=== PATIENT | male | born 1955 | race Caucasian/White ===

== ENCOUNTER → 2017-10-30 | Outpatient (CLI) | payer OTHER ==
[2017-10-30 12:26] LABS: HCT 43.9 % (39.0-53.0); HGB 14.5 gm/dL (13.0-17.5); MCH 31.7 pg (25.0-35.0); MCV 96.3 fL (80.0-100.0); Mean Platelet Volume 7.3; Platelet Count 225 k/uL (150-450); RBC 4.56 m/uL (4.30-5.90); RDW 12.5 % (11.5-15.5); WBC 5.4 k/uL (3.8-10.6)
[2017-10-30 12:34] LABS: INR 1.1 (<1.2); Partial Thromboplastin Time 24.4 sec (22.0-30.0); Prothrombin Time 10.5 sec (9.0-12.0)
[2017-10-30 12:38] LABS: ALT 48 U/L (21-72); AST 22 U/L (17-59); Albumin 4.2 g/dL (3.5-5.0); Alkaline Phosphatase 64 U/L (38-126); Anion Gap 11 mmol/L; Blood Urea Nitrogen 20 mg/dL (9-20); Calcium 9.7 mg/dL (8.4-10.2); Carbon Dioxide 23 mmol/L (22-30); Chloride 108 mmol/L (98-107); Glucose 88 mg/dL (74-99); Sodium 142 mmol/L (137-145); Total Bilirubin 0.3 mg/dL (0.2-1.3); Total Protein 6.7 g/dL (6.3-8.2)
[2017-10-30 12:43] LABS: Potassium 4.4 mmol/L (3.5-5.1)
[2017-10-30 12:54] LABS: Appearance,Urine Clear (Clear); Bilirubin,Urine Negative (Negative); Blood,Urine Negative (Negative); Color,Urine Yellow; Glucose,Urine (UA) Negative (Negative); Ketones,Urine Negative (Negative); Leukocyte Esterase,Urine Negative (Negative); Nitrite,Urine Negative (Negative); Protein,Urine Negative (Negative); Specific Gravity,Urine 1.013 (1.001-1.035); Urobilinogen,Urine <2.0 mg/dL (<2.0)
== END | disposition home or self-care (01) ==
LOC: LABPAT 12:11
PROVIDERS: ATTEND Orthopaedic Surgery Sports Medicine
DX: Z01.818 Encounter for other preprocedural examination (principal); Z01.812 Encounter for preprocedural laboratory examination
CPT/HCPCS: 36415; 80053; 81003; 85027; 85610; 85730; 87070; 93005

== ENCOUNTER 2017-11-18 10:20 | Inpatient (IN) | payer OTHER ==
[2017-11-11 11:44] VITALS: BMI 27.3
[~2017-11-18 10:20] MED LIST: ACETAMINOPHEN TAB 500 MG TAB PO ONE; DEXAMETHASONE SOD PHOSPHATE 10 MG/ML 1 ML VIAL IV ONE; HYDROmorphone 0.5 MG/0.5 ML SYRINGE IVP PRN; LIDOCAINE 1% 20 ML VIAL (10MG/ML) FOR IV START INTRADERMA PRN; MELOXICAM 7.5 MG TAB PO ONE; MIDAZOLAM 2 MG/2 ML VIAL IV PRN; ONDANSETRON 4 MG/2 ML VIAL IVP ONE; ROPIVACAINE 246.25 MG, EPINEPHrine 0.5 MG, KETOROLAC 30 MG, cloNIDine HCL/PF 80 MCG, WA... MISCELLANE ONE; SCOPOLAMINE 1.5MG/72HR PATCH TRANSDERM ONE; TRANEXAMIC ACID 1,000 MG in SODIUM CHLORIDE 0.9% 50 ML IVPB ONE; ceFAZolin IN SWFI 2 GM/20 ML SYRINGE IVP ONE
[2017-11-18] MEDS: LACTATED RINGERS 1,000 ML IV SCH ×2 (11:39→15:57)
[2017-11-18] MEDS ORDERED: diphenhydrAMINE 50 MG/ML 1 ML VIAL ONE (11:41)
[2017-11-18] MEDS ORDERED: ePHEDrine 50 MG/ML 1 ML AMP ONE (11:41)
[2017-11-18] MEDS ORDERED: LIDOCAINE 1% INJ 10MG/ML (20 ML MDV) ONE (11:41)
[2017-11-18] MEDS ORDERED: MORPHINE SULFATE (PF) 0.3 MG/0.3 ML SYR ONE (11:41)
[2017-11-18] MEDS ORDERED: SODIUM CHLORIDE 0.9% 100 ML BAG ONE (11:41)
[2017-11-18] MEDS ORDERED: PROPOFOL 10 MG/ML 20 ML VIAL IV ONE (11:41)
[2017-11-18] MEDS ORDERED: TRANEXAMIC ACID 1,000 MG/10 ML VIAL ONE (11:41)
[2017-11-18] MEDS ORDERED: fentaNYL (PF) 50 MCG/ML 2 ML AMP ONE (11:41)
[2017-11-18] MEDS ORDERED: MIDAZOLAM 2 MG/2 ML VIAL ONE (11:41)
[2017-11-18] MEDS ORDERED: SUCCINYLCHOLINE CHLORIDE 100 MG/5 ML SYR IV ONE (11:41)
[2017-11-18] MEDS ORDERED: ceFAZolin 1,000 MG in SODIUM CHLORIDE 0.9% 1,000 ML IRRIGATION ONE ×2 (13:04→13:05)
[2017-11-18] MEDS ORDERED: traMADol 50 MG TAB PO PRN (13:56)
[2017-11-18] MEDS ORDERED: ONDANSETRON 4 MG/2 ML VIAL IVP PRN (13:56)
[2017-11-18] MEDS ORDERED: MAGNESIUM HYDROXIDE 2,400 MG/10 ML CUP PO PRN (13:56)
[2017-11-18] MEDS ORDERED: hydrOXYzine PAMOATE 25 MG CAP PO PRN (13:56)
[2017-11-18] MEDS ORDERED: NA PHOS,M-B/NA PHOS,DI-BA 133 ML ENEMA RECTAL PRN (13:56)
[2017-11-18] MEDS ORDERED: DIAZEPAM 5 MG TAB PO PRN (13:56)
[2017-11-18] MEDS ORDERED: NALOXONE 0.4 MG/ML 1 ML VIAL IV PRN (13:56)
[2017-11-18] MEDS ORDERED: HYDROmorphone 0.5 MG/0.5 ML SYRINGE IVP PRN ×2 (13:56)
[2017-11-18] MEDS ORDERED: HYDROmorphone 2 MG/ML 1 ML SYRINGE IVP PRN (13:56)
[2017-11-18] MEDS ORDERED: ACETAMINOPHEN TAB 325 MG TAB PO PRN (13:56)
[2017-11-18] MEDS ORDERED: TEMAZEPAM 15 MG CAP PO PRN (13:56)
[2017-11-18] MEDS ORDERED: BISACODYL 10 MG SUPP RECTAL PRN (13:56)
[2017-11-18] MEDS ORDERED: HYDROcodone/APAP 7.5-325MG 1 EACH TAB PO PRN (13:56)
--- NOTE | 2017-11-18 14:26 | XR ---
Left knee HISTORY: Postop left knee 2 views of the left knee Patient is status post left knee arthroplasty. There is anatomic alignment. Lucency present in the so ft tissues is compatible with postop state. Bone mineralization is reduced. IMPRESSION: Orthopedic follow-up.
--- NOTE | 2017-11-18 14:45 | OP ---
OPERATIVE REPORT DATE OF PROCEDURE: 11/18/2017 PREOPERATIVE DIAGNOSIS: Left knee osteoarthrosis. POSTOPERATIVE DIAGNOSIS: Left knee osteoarthrosis. OPERATION: Left total knee arthroplasty. SURGEON: Rio Jones MD. HEALTH INSURANCE SALES AGENT: TRAN Sorensen. ANESTHESIA: Spinal with sedation. ESTIMATED BLOOD LOSS: 100 mL. TOURNIQUET TIME: 56 minutes at 250 mmHg. COMPLICATIONS: None apparent. DRAINS: None. DISPOSITION: Postanesthesia care unit. INDICATIONS: Yves is a very pleasant 62-year-old male with longstanding history of left knee pain. History and physical examination are consist with advanced left knee osteoarthrosis. He has been through a significant nonoperative management up to this point. Further treatment options were discussed and he has decided to go for the left total knee arthroplasty. The risks of procedure were discussed with him in detail. These risks include, but are not limited to risk of infection, nerve damage, bleeding, pain and risk of deep vein thrombosis which could lead to fatal pulmonary embolism. There is also risk of loosening of the implant which could require revision operation. The patient understands these risks. All of his questions were answered to his satisfaction. An appropriate informed consent was obtained. DESCRIPTION OF THE PROCEDURE: Patient identified in the preoperative holding area. Surgical sites marked by both the patient and myself. He was given 2 g of Ancef IV for prophylactic purposes. He was then transferred to the operative suite, he was placed supine on the operative table. Spinal anesthetic was then administered and dosed per the Anesthesia Department without apparent complication. Examination under anesthesia was then performed. The patient was 2 to 3 degrees shy of full extension. He had 105 degrees of flexion. The medial collateral ligament, lateral collateral ligament, posterior cruciate ligaments were stable. Tourniquet was then placed high on the left upper thigh, well-padded in preparation for surgery. The patient's left lower extremity was then prepped and draped in usual sterile fashion. Standard surgical pause was then undertaken to ensure that we were operating on the correct site and that appropriate preoperative antibiotics have been given. All staff in the room were in agreement and we proceeded. The outlines of the patella were marked with a surgical pen. A planned 12 cm vertical incision centered over the patella was marked with the surgical pen. Leg was then exsanguinated with an Esmarch dressing. The knee was then flexed and the tourniquet inflated to 250 mmHg. The total tourniquet time for the procedure was 56 minutes. Incision was then made with a 10 blade scalpel. Dissection was carried down sharply through the overlying fascia. Great care was taken to minimize the skin flaps. The knee was then exposed using a standard medial parapatellar approach. A small cuff of quadriceps tendon was left for suturing. He was in a bit of varus preoperatively. A standard medial release was then made. The superficial medial collateral ligament was dissected off of the bone around to the posterior aspect of the proximal tibia. The medial meniscus was then excised as well. The lateral meniscus was also released anteriorly. The leg was then externally rotated. The patella was everted and the knee was flexed. The retractors were then placed to protect the collateral ligaments. I then proceeded to remove the infrapatellar fat pad. This was excised sharply, tangentially with fibers of the patellar tendon. I then proceeded to remove peripheral osteophytes. This was done with a rongeur. I then proceeded with the distal femoral resection. He did have near full extension. A planned 9 mm resection was then done. The femoral canal was then entered in the midline and the femur approximately 10 mm anterior to the origin of the posterior cruciate ligament. The deana was then advanced down the center of the femur and placed intramedullary. Based on the preoperative radiographs, the angle between the anatomic and mechanical axis of the femur was approximately 4 to 5 degrees. The valgus angle of the distal femoral cutting guide was then set at 4 degrees for the left knee. The distal femoral cutting guide was then advanced over the intramedullary deana. This was seated firmly against the femur. I then as mentioned planned to take 9 mm off the distal femur. The cutting block was then secured to the femur with pins. The jig was removed and the distal femoral cut was made through the slot of the block. The pins were removed and the distal femoral cutting block was removed. The accuracy of the distal femoral cuts was checked with 2 flat bars. I then proceeded to femoral sizing. Posterior referencing sizing guide was held firmly against the resected distal surface of the femur. The posterior condyles were resting on the posterior plane of the guide. The sizing stylus was then placed onto the anterior femur. The size was measured as a size 9. I then assessed for femoral rotation. The plan was for 3 degrees of external rotation. Three degrees of external rotation was placed onto the jig. These holes were then marked. I then confirmed the rotation by 3 separate methods. This was done using epicondylar axis as well as Whitesides line and posterior referencing. It was deemed that the external rotation was proper. I then went forward placing the femoral cutting block. This placed over the previously placed pin holes. The Kenrick wing was then placed on the anterior slots to ensure that we would not notch the anterior femur with the anterior femoral cut. I then proceeded with the anterior femoral cut. This was flush with the anterior cortex of the femur. The posterior cuts were then made followed by the anterior chamfer cut and then the posterior chamfer cut. The cutting block was then removed. Throughout the resection, the collateral ligaments were protected with retractors. I then placed a trial size 9 femur. It fit very nice medial-lateral and fit flush with the distal end of the femur. The drill holes were then made. I then proceeded with the tibial cut. I planned for a cruciate retaining knee. The guide was then placed and set for varus valgus and for slope. The height was set for approximate 2 mm resection from the medial tibial plateau which was the lower side. I was happy with the alignment and the amount of resection. The cutting block was then pinned to the proximal tibia. The alignment deana was then removed and the proximal tibia was resected with a reciprocating saw. Again this was done with retractors protecting the collateral ligaments as well as the posterior cruciate ligament. I then proceeded to evaluate the flexion and extension gaps. A 10 mm block was placed. The flexion-extension gaps were equal. I then proceeded with resection of the posterior osteophytes. There are very minimal posterior osteophytes. This was done using a curved osteotome. This resected the posterior osteophytes and posterior capsule stripping was also done off the posterior aspect of the femur at this time. The osteophytes were removed. I then proceeded to resection of the patella. The thickness of patella was measured using the caliper. The thickness was 25 mm. The thickness of the anticipated patellar dome was then taken into account. Resection was then performed and confirmed to be equal in 4 quadrants using a caliper. Approximately 14 mm of bone remained after the resection. A 35 x 9 mm standard patellar trial was then placed. The drill holes were then drilled. The trial was then placed. I then proceeded with sizing the tibial plate. A size F tibial plate fit very nicely. I then placed the trial femur, the tibial tray and the patellar button. A 10 mm insert was placed. The components fit very nicely. He had full flexion and extension. The extension and flexion gaps were equal and stable to both varus and valgus stress. The patella tracked appropriately. The tibial tray rotation was marked with a Bovie. This was externally rotated properly. I then proceeded with tibial preparation. I first drilled the femoral holes, removed femoral component. The tibial tray was then set for proper external rotation as well as mediolateral placement onto the tibia. It was then pinned into place. I then proceeded with punching the keel. I then decided to proceed with cementing of all of our components. The knee was thoroughly irrigated with sterile saline solution via pulse lavage. The lateral geniculate artery was identified and cauterized. All blood was removed from the bone of the tibia femur and patella with pulse lavage. I then proceeded with cementing. Two packs of antibiotic bone cement were prepared on the back table by the surgical assistant certified. I then proceed with cementing the tibia first. The cement was impacted into the keel as well as deeply seated in the bone. A second coat of cement was then placed. The tibia was then impacted into place. Excess cement was removed with Erie's and jokers. I then proceeded with cementing the femoral component. The femoral component was also cemented using standard technique. Excess cement was removed. A 10 mm trial insert was placed into the knee. It was brought into full extension with a constant axial load placed until the cement had hardened. The patellar component was then cemented. This was held firmly with a compressive device until the cement had dried. When the cement dried, the knee was taken out of extension. All excess cement was removed from around the prosthesis. I then trialed with a 10 mm insert. I continued the trial up to a 14 mm insert. The flexion-extension gaps felt much better. The knee was stable with the 14 mm insert. It came in full extension. I decided to go for the 14 mm cross-linked cruciate-retaining tibial insert. The polyethylene was then placed onto the tibial tray and locked into place. The knee was reduced. The knee was again further irrigated with sterile saline solution with antibiotic added. The tourniquet was then deflated. The total tourniquet time for the procedure was 56 minutes at 250 mmHg. Final components were [place] Persona size 9, cruciate-retaining femoral component a size F tibial tray, a 14 mm cruciate-retaining polyethylene insert and a 35 x 9 mm patella. I then proceeded with closure. Again, the knee was thoroughly irrigated. The quadriceps tendon and the medial retinaculum were reapproximated with #2 Ethibond suture. The extensor mechanism was then closed with a running #2 Quill suture. Subcutaneous tissues were then closed with 2-0 Vicryl interrupted suture. The skin was closed with a running 3-0 Quill suture. Dermabond was applied to the incision. Sterile compressive dressings were then applied. All sponge and needle counts were deemed correct prior to closure. The patient tolerated the procedure without apparent complication. He was transferred to the recovery room in stable condition. MMODL / IJN: [id number] /
[2017-11-18] MEDS ORDERED: GABAPENTIN 300 MG CAP PO PRN (17:11)
[2017-11-18] MEDS ORDERED: BACLOFEN 10 MG TAB PO PRN (17:11)
[2017-11-18] MEDS: ASPIRIN 325 MG TAB PO SCH (20:11)
[2017-11-18] MEDS: ceFAZolin IN SWFI 2 GM/20 ML SYRINGE IVP SCH (20:11)
[2017-11-18] MEDS ORDERED: SENNOSIDES-DOCUSATE SODIUM 1 EACH TAB PO SCH (21:00)
[2017-11-18] MEDS ORDERED: ATORVASTATIN 10 MG TAB PO SCH (21:00)
[2017-11-18 21:34] VITALS: RESP 16
[2017-11-19] MEDS: LACTATED RINGERS 1,000 ML IV SCH ×3 (00:11→10:29)
[2017-11-19] MEDS: HYDROcodone/APAP 7.5-325MG 1 EACH TAB PO PRN ×3 (03:27→13:39)
[2017-11-19] MEDS: diphenhydrAMINE 25 MG CAP PO PRN ×2 (03:28→10:29)
[2017-11-19] MEDS: ceFAZolin IN SWFI 2 GM/20 ML SYRINGE IVP SCH (03:31)
[2017-11-19 07:17] LABS: Basophils % (A) 0 %; Eosinophils % (A) 0 %; HCT 38.7 % (39.0-53.0); HGB 12.3 gm/dL (13.0-17.5); Lymphocytes # (A) 1.5 k/uL (1.0-4.8); Lymphocytes % (A) 13 %; MCH 31.6 pg (25.0-35.0); MCHC 31.8 g/dL (31.0-37.0); MCV 99.6 fL (80.0-100.0); Mean Platelet Volume 8.1; Monocytes # (A) 0.9 k/uL (0-1.0); Monocytes % (A) 8 %; Neutrophils # (A) 9.1 k/uL (1.3-7.7); Neutrophils % (A) 78 %; Platelet Count 174 k/uL (150-450); RBC 3.89 m/uL (4.30-5.90); RDW 13.9 % (11.5-15.5); WBC 11.7 k/uL (3.8-10.6)
--- NOTE | 2017-11-19 07:34 | P.PN ---
Progress Note - Text Anesthesia POD 1. Patient is status post left TKR under spinal anesthesia which was converted to general endotracheal anesthesia because of inadequate block. Intrathecal morphine 300 g was included with the spinal. Patient states that he has had excellent postoperative analgesia through this morning. The patient did experience mild pruritus. There is no headache or other complications associated with spinal anesthetic.
[2017-11-19] MEDS: ASPIRIN 325 MG TAB PO SCH (08:15)
[2017-11-19 08:23] VITALS: BP 117/68; PULSE 50; TEMP 98.3
[2017-11-19] MEDS ORDERED: B COMPLEX-VIT C-VIT E-ZINC 1 EACH TAB PO SCH (09:00)
[2017-11-19] MEDS ORDERED: NON-FORMULARY DRUG (Multivitamin/Iron/Folic Acid [Centrum Complete Multivit Tab] 1 TAB) PO SCH (09:00)
[2017-11-19] MEDS ORDERED: UBIDECARENONE 200 MG PO SCH (09:00)
[2017-11-19] MEDS ORDERED: NON-FORMULARY DRUG (Glucosamine/Chondr Su A Sod [Osteo Bi-Flex Caplet] 1 TAB) PO SCH (09:00)
[2017-11-19] MEDS ORDERED: MULTIVITAMINS, THERA 1 EACH TAB PO SCH (12:00)
--- NOTE | 2017-11-19 12:49 | P.DS ---
Providers Date of admission: 11/18/17 10:20 Expected date of discharge: 11/19/17 Attending physician: Rio Jones Consults: 11/18/17 13:56 Consult Physician Routine Consulting Provider: Niles Glover Reason/Comments: post op medical management Do you want consulting provider notified?: Yes Primary care physician: Niles Glover - Discharge Diagnosis(es) (1) Osteoarthritis of left knee Patient was admitted to the OR on 11/18/16 to undergo left total knee arthroplasty. He had failed conservative measures as an outpatient and desired to proceed with elective surgery after given informed consent. He underwent the above procedure which he tolerated well without complication. Postoperative hospital course has remained without complication. On day of discharge he is afebrile, vital signs stable, labs within acceptable ranges, tolerating by mouth meds and diet, voiding without difficulty, positive flatus, denies abdominal pain or calf pain, pain is controlled on oral pain medication and has no new complaints. Wound is benign, neurovascular status is intact, calf is soft and nontender, abdomen soft and nontender. Review of systems is negative for numbness, tingling, fever, chills, chest pain, shortness breath, nausea, vomiting, dizziness, headaches, slurred speech or other. Current Visit: Yes Status: Acute Priority: Medium Procedures: Left TKA Patient Condition at Discharge: Good Plan - Discharge Summary Discharge Rx Participant: Yes New Discharge Prescriptions: New Aspirin 325 mg PO BID #60 tab Docusate [Colace] 100 mg PO BID #60 capsule HYDROcodone/APAP 7.5-325MG [[place] 7.5-325] 1 - 2 each PO Q6HR PRN #90 tab PRN Reason: Pain No Action Simvastatin [Zocor] 10 mg PO HS Multivitamin/Iron/Folic Acid [Centrum Complete Multivit Tab] 1 tab PO DAILY Gabapentin [Neurontin] 300 mg PO Q8HR PRN PRN Reason: Pain Meloxicam 15 mg PO DAILY PRN PRN Reason: Pain Ubidecarenone [Co Q10] 200 mg PO DAILY Vitamin B Complex 1 cap PO DAILY Glucosamine/Chondr Villavicencio A Sod [Osteo Bi-Flex Caplet] 1 tab PO DAILY Prostate Tablet 1 tab PO DAILY traMADol HCL [Ultram] 50 mg PO Q6HR PRN PRN Reason: Pain Baclofen [Lioresal] 10 mg PO TID PRN PRN Reason: Pain Aspirin [Adult Aspirin Regimen] 81 mg PO DAILY Hydrocodone/Acetaminophen [[place] 5-325] 1 tab PO Q4HR PRN PRN Reason: Pain Discharge Medication List Simvastatin [Zocor] 10 mg PO HS 03/01/14 [History] Multivitamin/Iron/Folic Acid [Centrum Complete Multivit Tab] 1 tab PO DAILY [History] Aspirin [Adult Aspirin Regimen] 81 mg PO DAILY 11/11/17 [History] Baclofen [Lioresal] 10 mg PO TID PRN 11/11/17 [History] Gabapentin [Neurontin] 300 mg PO Q8HR PRN 11/11/17 [History] Glucosamine/Chondr Villavicencio A Sod [Osteo Bi-Flex Caplet] 1 tab PO DAILY 11/11/17 [ History] Meloxicam 15 mg PO DAILY PRN 11/11/17 [History] Prostate Tablet 1 tab PO DAILY 11/11/17 [History] Ubidecarenone [Co Q10] 200 mg PO DAILY 11/11/17 [History] Vitamin B Complex 1 cap PO DAILY 11/11/17 [History] traMADol HCL [Ultram] 50 mg PO Q6HR PRN 11/11/17 [History] Hydrocodone/Acetaminophen [[place] 5-325] 1 tab PO Q4HR PRN 11/18/17 [History] Aspirin 325 mg PO BID #60 tab 11/19/17 [Rx] Docusate [Colace] 100 mg PO BID #60 capsule 11/19/17 [Rx] HYDROcodone/APAP 7.5-325MG [[place] 7.5-325] 1 - 2 each PO Q6HR PRN #90 tab [Rx] Follow up Appointment(s)/Referral(s): [facility], [NON-STAFF] - Rio Jones MD [STAFF PHYSICIAN] - 10 Days Activity/Diet/Wound Care/Special Instructions: Keep wound clean and dry Take meds as directed Follow-up with Dr. Jones in office weight bear as tolerated. may shower in 72 hours Discharge Disposition: HOME WITH HOME HEALTH SERVICES
--- NOTE | 2017-11-19 14:18 | P.CONS ---
History of Present Illness - Reason for Consult Consult date: 11/19/17 Medical management Requesting physician: Rio Jones - Chief Complaint Left total knee arthroplasty - History of Present Illness This is a pleasant 62-year-old gentleman patient of Dr. Ladd. He has underlying history of kidney stones, and hyperlipidemia admitted to service of Dr. Jones for a left total knee arthroplasty. He was cleared by our officeposition for the proposed procedures. Patient did well postoperatively without any nausea vomiting or chest pain. Patient does not have any complications perioperatively, and is anticipating for an early discharge later this afternoon. Patient's medically stable without any new complaints postoperative pain is controlled. Patient's continue be discharged on aspirin 325 mg twice a day for DVT prophylaxis. Patient denies any prior history of DVT in the past. PE in the past, no family history of hypercoagulopathy Review of Systems Constitutional: Reports as per HPI, Denies anorexia, Denies chills, Denies chronic headaches, Denies chronic pain, Denies daytime sleepiness, Denies fatigue, Denies fever, Denies lethargy, Denies malaise, Denies night sweats, Denies poor appetite, Denies sweats, Denies weakness, Denies weight gain, Denies weight loss Ears, nose, mouth and throat: Reports as per HPI, Denies ant. neck pain, Denies bleeding gums, Denies dental pain, Denies dysphagia, Denies epistaxis, Denies headache, Denies hoarseness, Denies mouth pain, Denies nasal congestion, Denies nasal discharge, Denies neck fullness/pressure, Denies neck lump, Denies nose pain, Denies odynophagia, Denies post-nasal drip, Denies sinus pain, Denies sinus pressure, Denies swelling in mouth, Denies swelling in throat, Denies sore throat, Denies vertigo, Denies voice changes Cardiovascular: Reports as per HPI, Denies chest pain, Denies claudication, Denies decreased exercise tolerance, Denies dyspnea on exertion, Denies edema, Denies high blood pressure, Denies irregular heart beat, Denies leg edema, Denies lightheadedness, Denies orthopnea, Denies palpitations, Denies paroxysmal nocturnal dyspnea, Denies phlebitis, Denies rapid heart beat, Denies shortness of breath, Denies syncope Respiratory: Reports as per HPI, Denies congestion, Denies cough, Denies cough with sputum, Denies dyspnea, Denies excessive sputum, Denies hemoptysis, Denies home oxygen, Denies pain, Denies pain on inspiration, Denies pleurisy, Denies respiratory infections, Denies sleep apnea, Denies snoring, Denies wheezing Gastrointestinal: Reports as per HPI, Denies abdominal pain, Denies belching, Denies bloating, Denies BRBPR, Denies change in bowel habits, Denies coffee ground emesis, Denies constipation, Denies diarrhea, Denies dyspepsia, Denies early satiety, Denies excessive gas, Denies heartburn, Denies hematemesis, Denies hematochezia, Denies indigestion, Denies jaundice, Denies lactose intolerance, Denies loss of appetite, Denies melena, Denies nausea, Denies vomiting Genitourinary: Reports as per HPI, Denies decreased libido, Denies difficulties fathering child, Denies discharge, Denies dysuria, Denies erectile dysfunction, Denies flank pain, Denies genital pain, Denies genital sores, Denies hematuria, Denies impotence, Denies incontinence, Denies kidney stones, Denies nocturia, Denies polyuria, Denies testicular lump, Denies testicular pain, Denies urinary frequency, Denies urinary hesitancy, Denies urinary retention Musculoskeletal: Reports as per HPI, Denies arm numbness/tingling, Denies atrophy, Denies fractures, Denies frequent falls, Denies gait dysfunction, Denies hot joints, Denies leg numbness/tingling, Denies limitation of motion, Denies loss of height, Denies low back pain, Denies morning stiffness, Denies muscle cramps, Denies muscle weakness, Denies myalgias, Denies neck pain, Denies neck stiffness, Denies prior amputations, Denies redness of joints, Denies shooting arm pain, Denies shooting leg pain Musculoskeletal: left: knee pain, knee stiffness Integumentary: Reports as per HPI, Denies acne, Denies boils, Denies brittle nails, Denies change in hair/nails, Denies color changes, Denies darkening of skin, Denies depigmentation, Denies dryness, Denies foot/leg ulcers, Denies growths, Denies hirsutism, Denies lesions, Denies onychomycosis, Denies pruritus , Denies rash, Denies sores, Denies striae, Denies unusual bruising Neurological: Reports as per HPI, Denies aphasia, Denies ataxia, Denies balance difficulties, Denies burning pain, Denies change in mentation, Denies change in smell/taste, Denies change in speech, Denies confusion, Denies convulsions, Denies double vision, Denies gait dysfunction, Denies head injury, Denies headaches, Denies hearing difficulties, Denies lack of coordination, Denies loss of vision, Denies memory loss, Denies migraines, Denies motor disturbance, Denies numbness, Denies paralysis, Denies paresthesias, Denies seizures, Denies sensory deficit, Denies spasticity, Denies syncope, Denies tic, Denies tingling , Denies transient paralysis, Denies tremors, Denies vertigo, Denies weakness, Denies visual changes Psychiatric: Reports as per HPI Endocrine: Reports as per HPI, Denies cold intolerance, Denies deepening of the voice, Denies excessive sweating, Denies excessive thirst, Denies fatigue, Denies flushing, Denies heat intolerance, Denies high blood sugars, Denies increase in ring/shoe/hat size, Denies low blood sugars, Denies nocturia, Denies palpitations, Denies polydipsia, Denies polyphagia, Denies polyuria, Denies proptosis, Denies recent glucocorticoid use, Denies thyroid mass, Denies weight change Hematologic/Lymphatic: Reports as per HPI Allergic/Immunologic: Reports as per HPI, Denies allergic rhinitis, Denies anaphylaxis, Denies angioedema, Denies gluten intolerance, Denies persistent infections, Denies seasonal allergies, Denies urticaria, Denies wheezing Past Medical History Past Medical History: Hyperlipidemia Additional Past Medical History / Comment(s): kidney stones, History of Any Multi-Drug Resistant Organisms: None Reported Past Surgical History: Orthopedic Surgery Additional Past Surgical History / Comment(s): bilateral knee arthroscopic, deviated septum, varicose vein surgery left leg, Past Anesthesia/Blood Transfusion Reactions: No Reported Reaction Past Psychological History: No Psychological Hx Reported Smoking Status: Former smoker Past Alcohol Use History: Occasional Additional Past Alcohol Use History / Comment(s): quit smoking 45 yrs, smoked for 5 yrs Past Drug Use History: None Reported - Past Family History Father Family Medical History: Cancer (Prostate cancer stomach cancer secondary to CVA at age 87) Mother Family Medical History: Cancer (Brain tumor at age 62) Brother(s) Family Medical History: Unable to Obtain Sister(s) Family Medical History: Cancer (Cancer lung, one sister 51, 4 other sisters one with cancer lung cancer alive, others have URETHRITIS), Osteoarthritis (OA) Daughter(s) Family Medical History: No Reported History, Renal Disease (Membranous proliferative glomerulonephritis) Son(s) Family Medical History: Unable to Obtain Medications and Allergies Home Medications Medication Instructions Recorded Confirmed Type Simvastatin [Zocor] 10 mg PO HS 03/01/14 11/18/17 History Multivitamin/Iron/Folic Acid 1 tab PO DAILY 12/15/14 11/18/17 History [Centrum Complete Multivit Tab] Aspirin [Adult Aspirin Regimen] 81 mg PO DAILY 11/11/17 11/18/17 History Baclofen [Lioresal] 10 mg PO TID PRN 11/11/17 11/18/17 History Gabapentin [Neurontin] 300 mg PO Q8HR PRN 11/11/17 11/18/17 History Glucosamine/Chondr Villavicencio A Sod [Osteo 1 tab PO DAILY 11/11/17 11/18/17 History Bi-Flex Caplet] Meloxicam 15 mg PO DAILY PRN 11/11/17 11/18/17 History Prostate Tablet 1 tab PO DAILY 11/11/17 11/18/17 History Ubidecarenone [Co Q10] 200 mg PO DAILY 11/11/17 11/18/17 History Vitamin B Complex 1 cap PO DAILY 11/11/17 11/18/17 History traMADol HCL [Ultram] 50 mg PO Q6HR PRN 11/11/17 11/18/17 History Hydrocodone/Acetaminophen [[place] 1 tab PO Q4HR PRN 11/18/17 11/18/17 History 5-325] Aspirin 325 mg PO BID #60 tab 11/19/17 Rx Docusate [Colace] 100 mg PO BID #60 capsule 11/19/17 Rx HYDROcodone/APAP 7.5-325MG [[place] 1 - 2 each PO Q6HR PRN #90 tab 11/19/17 Rx 7.5325] Allergies Allergy/AdvReac Type Severity Reaction Status Date / Time No Known Allergies Allergy Verified 11/18/17 14:57 Physical Exam Vitals: Vital Signs Temp Pulse Pulse Pulse Resp BP Pulse Ox 11/19/17 08:09 96 11/19/17 07:00 98.3 F 50 L 16 117/68 96 11/19/17 01:00 98.2 F 58 L 16 127/66 96 11/18/17 20:00 97.9 F 82 16 117/69 95 11/18/17 17:15 55 L 116/66 11/18/17 17:00 55 L 103/60 11/18/17 16:30 56 L 116/68 11/18/17 16:15 55 L 116/67 11/18/17 16:00 54 L 119/69 11/18/17 15:45 58 L 120/69 11/18/17 15:30 54 L 122/69 11/18/17 15:15 97.8 F 54 L 14 120/67 95 11/18/17 14:30 56 L 18 118/64 94 L 11/18/17 14:15 58 L 18 133/58 93 L Intake and Output 11/18/17 11/19/17 11/19/17 22:59 06:59 14:59 Intake Total 960 237 Output Total 200 Balance 760 237 Intake: Intake, IV Titration 600 Amount Lactated Ringers 1,000 ml 600 @ 100 mls/hr IV .Q10H [facility] Rx#:[id number] Oral 360 237 Output: Urine 200 Other: Voiding Method Toilet Urinal # Voids 1 Weight 83.915 kg - Constitutional General appearance: cooperative, no acute distress - EENT Eyes: anicteric sclerae, EOMI, PERRLA, dentition normal, normal appearance ENT: NA/AT, normal oropharynx - Neck Neck: normal ROM - Respiratory Respiratory: bilateral: CTA, negative: diminished, dullness, rales, rhonchi, wheezing - Cardiovascular Rhythm: regular Heart sounds: normal: S1, S2 Abnormal Heart Sounds: no systolic murmur, no diastolic murmur, no rub, no S3 Gallop, no S4 Gallop, no click, no other - Gastrointestinal General gastrointestinal: normal bowel sounds, soft - Integumentary Integumentary: normal, normal turgor (Wound incision is clean without any dehiscence,) - Musculoskeletal Musculoskeletal: gait normal (Except for positive the pain which is expected gait stable), strength equal bilaterally - Psychiatric Psychiatric: A&O x's 3, appropriate affect Results CBC & Chem 7: 11/19/17 06:43 Labs: Abnormal Lab Results - Last 24 Hours (Table) 11/19/17 Range/Units 06:43 WBC 11.7 H (3.8-10.6) k/uL RBC 3.89 L (4.30-5.90) m/uL Hgb 12.3 L (13.0-17.5) gm/dL Hct 38.7 L (39.0-53.0) % Neutrophils # 9.1 H (1.3-7.7) k/uL Laboratory Results WBC 11.7 k/uL (3.8-10.6) H 11/19/17 06:43 RBC 3.89 m/uL (4.30-5.90) L 11/19/17 06:43 Hgb 12.3 gm/dL (13.0-17.5) L 11/19/17 06:43 Hct 38.7 % (39.0-53.0) L 11/19/17 06:43 MCV 99.6 fL (80.0-100.0) 11/19/17 06:43 MCH 31.6 pg (25.0-35.0) 11/19/17 06:43 MCHC 31.8 g/dL (31.0-37.0) 11/19/17 06:43 RDW 13.9 % (11.5-15.5) 11/19/17 06:43 Plt Count 174 k/uL (150-450) 11/19/17 06:43 Neutrophils % 78 % 11/19/17 06:43 Lymphocytes % 13 % 11/19/17 06:43 Monocytes % 8 % 11/19/17 06:43 Eosinophils % 0 % 11/19/17 06:43 Basophils % 0 % 11/19/17 06:43 Neutrophils # 9.1 k/uL (1.3-7.7) H 11/19/17 06:43 Lymphocytes # 1.5 k/uL (1.0-4.8) 11/19/17 06:43 Monocytes # 0.9 k/uL (0-1.0) 11/19/17 06:43 Eosinophils # 0.0 k/uL (0-0.7) 11/19/17 06:43 Basophils # 0.0 k/uL (0-0.2) 11/19/17 06:43 Assessment and Plan Plan: 1. Left total knee arthroplasty for which patient did well without any perioperative complications, patient's doing well and is to be discharged later this afternoon, with aspirin 325 mg twice a day for DVT prophylaxis, incentive spirometry, and bowel program. Patient was advised regarding narcotic use for opiate use and significant bowel troubles. She is to be discharged on Colace 100 mg twice a day, hydrocodone 5-85 for pain and meloxicam 15 mg 2. History of kidney stones, asymptomatic, normal renal function test 3. Hyperlipidemia on simvastatin 10 mg daily at bedtime no changes made 4. DVT prophylaxis using aspirin 5. GI prophylaxis with bowel programs for constipation. Thank you Dr. Jones in allowing us to participate in the care of your patient. He is medically stable at this point and is expected to be discharged with outpatient follow-up to his PCP Dr. Glover and orthopedics
== END 2017-11-19 14:05 | disposition home health service (06) | DRG 470 ==
LOC: 2ORMAIN 10:20 → 3SUR 14:46
PROVIDERS: ADMIT Orthopaedic Surgery Sports Medicine; ATTEND Orthopaedic Surgery Sports Medicine
PROC: 0SRD0J9 Replacement of Left Knee Joint with Synthetic Substitute, Cemented, Open Approach (ICD-10-PCS; principal; 2017-11-18 12:00)
DX: M17.12 Unilateral primary osteoarthritis, left knee (principal); E78.5 Hyperlipidemia, unspecified; H91.90 Unspecified hearing loss, unspecified ear; F32.9 Major depressive disorder, single episode, unspecified; L29.9 Pruritus, unspecified; Z79.82 Long term (current) use of aspirin; Z79.899 Other long term (current) drug therapy; Z87.891 Personal history of nicotine dependence; Z87.442 Personal history of urinary calculi; Z86.711 Personal history of pulmonary embolism
CPT/HCPCS: 85025; 88300